=== PATIENT | female | born 1990 | race African-American/Black ===

== ENCOUNTER 2020-06-23 02:54 | Emergency (ER) | payer OTHER ==
[~2020-06-23] VITALS: Ht 152.4 cm; Wt 77.1 kg
[2020-06-23] MEDS ORDERED: ZEBUTAL 50-3251 EACH PO (05:57)
== END 2020-06-23 06:02 | disposition home or self-care (01) ==
LOC: ER 02:54
DX: R51.9 Headache, unspecified (principal); R11.0 Nausea

== ENCOUNTER 2021-01-16 14:32 | Emergency (ER) | payer OTHER ==
[~2021-01-16] VITALS: Ht 147.3 cm; Wt 72.6 kg
[~2021-01-16 14:32] MED LIST: ZEBUTAL 50-3251 EACH PO
[2021-01-16] MEDS ORDERED: DUI500 PO (17:24)
== END 2021-01-16 17:25 | disposition home or self-care (01) ==
LOC: ER 14:32
DX: S91.242A Puncture wound with foreign body of left great toe with damage to nail, initial encounter (principal); W18.09XA Striking against other object with subsequent fall, initial encounter; Y93.89 Activity, other specified; Y92.098 Other place in other non-institutional residence as the place of occurrence of the external cause; Y99.8 Other external cause status

== ENCOUNTER 2022-04-28 22:45 | Emergency (ER) | payer OTHER ==
[~2022-04-28] VITALS: Ht 147.3 cm; Wt 83.0 kg
[~2022-04-28 22:45] MED LIST changes: +DUI500 PO
[2022-04-28] MEDS ORDERED: BACTRIM DS TAB1 EACH PO (23:47)
== END 2022-04-29 00:02 | disposition home or self-care (01) ==
LOC: ER 22:45
DX: T24.032A Burn of unspecified degree of left lower leg, initial encounter (principal); X18.XXXA Contact with other hot metals, initial encounter; Y93.19 Activity, other involving water and watercraft; Y92.89 Other specified places as the place of occurrence of the external cause; L03.116 Cellulitis of left lower limb

== ENCOUNTER 2022-09-18 12:37 | Emergency (ER) | payer OTHER ==
[~2022-09-18] VITALS: Ht 147.3 cm; Wt 83.0 kg
[~2022-09-18 12:37] MED LIST changes: +BACTRIM DS TAB1 EACH PO
[2022-09-18] MEDS ORDERED: NORFLEX100MG PO (16:04)
[2022-09-18] MEDS ORDERED: KETO10TA2 PO (16:04)
== END 2022-09-18 16:48 | disposition home or self-care (01) ==
LOC: ER 12:37
DX: M54.2 Cervicalgia (principal); M62.838 Other muscle spasm; Z91.038 Other insect allergy status